=== PATIENT | male | born 1965 | race Caucasian/White ===

== ENCOUNTER 2024-07-28 07:32 | Emergency (ER) | payer OTHER, SELFPAY ==
--- NOTE | 2024-07-28 07:37 | ED.GENMED ---
History of Present Illness
General
Chief Complaint: Fainting/Passed Out
Time Seen by Provider: 07/28/24 07:36
History of Present Illness
History of Present Illness:
TIME OF INITIAL ENCOUNTER: 7:40 AM
HPI: The patient came in by ambulance after syncopal event. He was doing a rather intense workout that he does not normally do. He felt overall exhausted and needed to sit down to take a break. While he was talking with a health and safety trainer, he felt a ramon
into his head and then passed out. He never had any chest pain or tightness. He had no significant shortness of breath. He currently feels improved. He has similar episode 13 years ago and reports having an unremarkable cardiac workup including
normal echo.
EXAM:
GENERAL: Well appearing in no distress
HEENT: Moist oral mucosa
CARDIOVASCULAR: No murmurs, normal heart rate, regular rhythm, No chest wall tenderness
PULMONARY: No respiratory distress, breath sounds are clear and equal
ABDOMEN: Soft with no peritoneal signs, no tenderness
NEUROLOGIC: Excellent strength all extremities, no coordination deficits
PSYCHIATRIC: Appropriate mental status, normal insight and judgement
EXTREMITIES: Nontender, no edema, moves all extremities equally
SKIN: No rash, no lesions
NUMBER AND COMPLEXITY OF PROBLEMS ADDRESSED AT THE ENCOUNTER
� Chronic conditions affecting care: Hyperlipidemia, borderline diabetes
� Acute Exacerbation and/or Progression of Chronic Illness: This is an acute problem
� Differential Diagnosis includes: Dehydration, vasovagal syncope, low suspicion for structural heart disease as there are no murmurs and he reports negative echo in the past
AMOUNT AND/OR COMPLEXITY OF DATA TO BE REVIEWED AND ANALYZED
� I performed an independent evaluation of and my interpretation is:
EKG: Sinus 67, normal axis, no ST abnormality
CT:
X-rays:
Laboratory Studies: White count 7.8, hemoglobin normal at 13.2, blood glucose in the lab was 50 and at bedside was 70
Other:
� Review of other/old records: Stress echo 01/19/2012 was unremarkable
� Clinical information was obtained by an independent historian: EMS, notes indicate the patient is also recently been ongoing over the past week
� Prescriptions/Medications Considered but not given:
� Further testing considered but not performed:
RISK OF COMPLICATIONS AND/OR MORBIDITY OR MORTALITY OF PATIENT MANAGEMENT
� Social determinants of health affecting care: Lives at home
� Discussion with other providers:
� Escalation of care including admission/observation vs risk of discharge considered: The patient is given IV fluids. He is well-appearing with a normal EKG.
ANY OTHER UPDATES:
9:35 AM: I reassessed patient. Although the blood sugar was 50 on the lab, blood sugar at bedside was 70. He says that they did give him a small amount of 'sugar' just prior to arrival. He has remained sinus on the monitor. He did not eat much
today.
Past History
Past History
ED Past Medical History: GERD
Social History
Tobacco: Non-smoker
Phy Exam
Physical Exam
Physical Exam:
See HPI
Course
Orders/Labs/Results
Orders:
Orders
07/28/24 07:37
EKG [Electrocardiogram (*1)] Urgent
Reason for Study: Vertigo / Dizzy
EKG- Treatment ONCE
07/28/24 07:38
Complete Blood Count/With Diff Urgent
Comprehensive Metabolic Panel Urgent
07/28/24 07:42
0.9% Sodium Chloride 1000 ml [Nss] 1,000 ml IV BOLUS
07/28/24 09:24
Bedside Glucose- Treatment ONCE
Abnormal Lab Results
07/28/24
07:38
RBC 4.54 L 10^6/uL
(4.70-6.10)
Hct 38.8 L %
(39.0-52.0)
MPV 11.5 H fL
(7.4-10.4)
Absolute Lymphs (auto) 0.7 L 10^3/uL
(1.2-3.4)
Neutrophils % 81.2 H %
(42.2-75.2)
Lymphocytes % 9.1 L %
(20.5-51.1)
Glucose 50 L* mg/dl
(70-99)
Total Protein 5.7 L g/dl
(6.3-8.2)
07/28/24 07:38
07/28/24 07:38
Vital Signs
Initial and Last Documented VS:
Initial Vital Signs
Pulse Resp Pulse Ox
65 8 98
07/28/24 07:37 07/28/24 07:37 07/28/24 07:37
Last Documented Vital Signs
Temp Pulse Resp BP Pulse Ox
36.9 C 69 17 111/62 99
07/28/24 07:53 07/28/24 08:15 07/28/24 08:15 07/28/24 08:00 07/28/24 08:15
*Critical Care Note
Total Time (30-74mins, 75-104mins- exclusive of procedures): Not Applicable
ED Attending Note
-
Portions of this chart may have been created with voice recognition software.� Occasional wrong word or��sound alike� substitutions may have occurred due to the inherent limitations of voice recognition software.
Discharge Plan
Departure
Prescriptions:
No Action
tamsulosin [Flomax] 0.4 MG capsule
0.4 mg PO DAILY Qty: 14 0RF
Referrals:
Hao Dominguez MD [Family Provider] -
Interventions
Interventions:
*Risk Screen - Suicide Last Done: 07/28/24 07:53
*General Assessment Last Done: 07/28/24 07:53
*Neglect/Abuse Screening Last Done: 07/28/24 07:53
*ED- Fall Risk Assessment Last Done: 07/28/24 07:53
*ED COVID-19 Vaccine History Last Done: 07/28/24 07:53
ED- Cardiac Assessment Last Done: 07/28/24 07:53
ED- Neurological Assessment Last Done: 07/28/24 07:53
Discharge Date and Time
Print Language: KOSOVAN
[2024-07-28 07:40] VITALS: BP 102/70
[2024-07-28 07:53] VITALS: BP 102/70; BMI 28.1
[2024-07-28 08:00] VITALS: BP 111/62
[2024-07-28] MEDS: NSS 1000 IV (08:04)
[2024-07-28 08:32] LABS: % Basophils 0.3 % (0-2); % Eosinophils 1.1 % (0-6); % Immature Granulocytes 0.3 % (0-0.5); % Lymphocytes 9.1 % (20.5-51.1); % Neutrophils 81.2 % (42.2-75.2); Absolute Eosinophils 0.1 10^3/uL (0-0.7); Absolute Lymphocytes 0.7 10^3/uL (1.2-3.4); Absolute Monocytes 0.6 10^3/uL (0.1-0.6); Absolute Neutrophils 6.4 10^3/uL (1.4-6.5); Hematocrit 38.8 % (39.0-52.0); Hemoglobin 13.2 g/dL (13.0-18.0); Mean Corpuscular Hgb 29.1 pg (27.0-31.0); Mean Corpuscular Volume 85.5 fL (80.0-94.0); Mean Platelet Volume 11.5 fL (7.4-10.4); Nucleated Red Blood Cells % 0 % (-); Platelet Count 135 10^3/uL (130-400); Red Blood Cell Count 4.54 10^6/uL (4.70-6.10); Red Cell Dist. Width 13.9 % (11.5-14.5); White Blood Cell Count 7.8 10^3/uL (4.8-10.8)
[2024-07-28 09:00] VITALS: BP 115/60
[2024-07-28 09:24] LABS: ALT (SGPT) 30 U/L (0-50); AST (SGOT) 27 U/L (17-59); Albumin 3.7 g/dl (3.5-5.0); Alkaline Phosphatase 81 U/L (38-126); Blood Urea Nitrogen 18 mg/dl (9-20); Carbon Dioxide 27 mmol/L (22-30); Chloride 104 mmol/L (98-107); Estimated Creatinine Clearance 65 ml/min; Glucose 50 mg/dl (70-99); Potassium 3.8 mmol/L (3.5-5.1); Sodium 139 mmol/L (135-145); Total Bilirubin 0.7 mg/dl (0.2-1.3); Total Protein 5.7 g/dl (6.3-8.2); eGFR > 60.00
[2024-07-28 09:28] LABS: Glucose - Point of Care 70 mg/dl (70-99)
[2024-07-28 10:00] VITALS: BP 103/79
== END 2024-07-28 10:35 | disposition home or self-care (01) ==
LOC: EMR 07:32
PROVIDERS: EMERGENCY PHYSICIAN Emergency Medicine; FAMILY PHYSICIAN Family Medicine
DX: R55 Syncope and collapse (principal); K21.9 Gastro-esophageal reflux disease without esophagitis
CPT/HCPCS: 99283; 96360; 80053; 82962; 85025; 93005

== ENCOUNTER 2024-08-01 06:18 | Day surgery (SDC) | payer OTHER, SELFPAY | END 2024-08-01 12:02 | disposition home or self-care (01) | LOC: GI 06:18 | PROVIDERS: ATTENDING PHYSICIAN Internal Medicine | DX: Z12.11 Encounter for screening for malignant neoplasm of colon (principal); K57.30 Diverticulosis of large intestine without perforation or abscess without bleeding; K64.8 Other hemorrhoids; K63.5 Polyp of colon | CPT/HCPCS: 45380; 88305 ==